=== PATIENT | male | born 1970 | race Caucasian/White ===

== ENCOUNTER 2025-01-13 15:36 | Emergency (ER) | payer MEDICAID, OTHER ==
[~2025-01-13] VITALS: Ht 170.2 cm; Wt 80.0 kg
[2025-01-13 15:42] VITALS: O2SAT 100
[2025-01-13] MEDS: ONDANSETRON HCL 4MG/2ML INJ IV ONE (17:19)
[2025-01-13] MEDS: ACETAMINOPHEN 500MG TABLET PO ONE (17:19)
[2025-01-13 17:24] LABS: BASOPHILS % 0.4 % (0.0-2.0); EOSINOPHILS % 1.6 % (0.0-5.0); HEMATOCRIT. 25.1 % (42.0-52.0); HEMOGLOBIN. 8.2 g/dL (14.0-18.0); LYMPHOCYTES % 8.7 % (20.0-50.0); MEAN PLATELET VOLUME 8.3 fl (7.4-10.4); MONOCYTES % 7.8 % (2.0-8.0); NEUTROPHILS % 81.5 % (40.0-76.0); PLATELET 189 x1000/uL (130-400); RED BLOOD CELL COUNT 2.99 mill/uL (4.7-6.1); RED CELL DISTRIBUTION WIDTH 16.8 % (11.6-14.6)
[2025-01-13 17:34] LABS: INR 1.1
[2025-01-13 17:37] LABS: UREA NITROGEN BLOOD 47 mg/dL (9-23)
[2025-01-13 17:39] LABS: ASPARTATE AMINOTRANSFERASE 12 IU/L (<34); BILIRUBIN DIRECT 0.1 mg/dL (<=3.0); BILIRUBIN TOTAL 0.3 mg/dL (0.1-1.0); PROTEIN TOTAL 7.2 g/dL (6.0-8.3); TROPONIN I HIGH SENSITIVITY 23 ng/L (3.0-53)
[2025-01-13 17:41] LABS: CREATININE 12.5 mg/dL (0.6-1.3)
[2025-01-13] MEDS: CEFTRIAXONE 1GM/50ML 50 ML IV ONE (18:17)
[2025-01-13] MEDS: SODIUM CHLORIDE 0.9% 500 ML IV ONE (18:17)
[2025-01-13 21:30] VITALS: BP 166/86; PULSE 69; RESP 16; TEMP 37.1; O2SAT 99
== END 2025-01-13 22:04 | disposition short-term general hospital (02) ==
LOC: ER 15:36 → EDBEDREQ 21:18 → EDBEDREQTM 21:18 → ER 22:04 → CMPBEDREQ 01-15 19:25
DX: R53.1 Weakness (principal); I13.2 Hypertensive heart and chronic kidney disease with heart failure and with stage 5 chronic kidney disease, or end stage renal disease; I50.9 Heart failure, unspecified; N18.6 End stage renal disease; Z99.2 Dependence on renal dialysis; Z20.822 Contact with and (suspected) exposure to COVID-19
CPT/HCPCS: 80076; 80048; 81025; 83880; 83605; 83690; 83735; 85025; 85610; 87040; 87186; 84484; 87077; 36415; 84145; 71045; 70450; 96365; 96366; 96375; 99291; 87426; J0696; J2405; J7040; Z7610; 96361